=== PATIENT | female | born 1965 | race Caucasian/White ===

== ENCOUNTER 2016-06-17 14:46 | Emergency (ER) | payer OTHER ==
[2016-06-17 14:37] LABS: URINE SOURCE CLEAN CATCH
[2016-06-17 14:39] LABS: URINE APPEARANCE HAZY; URINE BILIRUBIN NEG (NEG); URINE BLOOD 3+ (NEG); URINE COLOR YELLOW; URINE GLUCOSE NEG (NORM); URINE KETONE NEG (NEG); URINE LEUKOCYTE ESTERASE 1+ (NEG); URINE NITRATE NEG (NEG); URINE PROTEIN NEG (NEG); URINE UROBILINOGEN 0.2 MG/DL (NORM)
[2016-06-17 14:46] LABS: MICRO INDICATED? YES
[~2016-06-17 14:46] MED LIST: CLONIDINE; CLONIDINE1 EAC2 PO; LIPITOR20 MG; METFORMIN PO; NERVE PILL
[2016-06-17 14:51] LABS: CULTURE INDICATED? YES; URINE BACTERIA 3+ (NEG); URINE GRANULAR CAST 0-2 /[HPF]; URINE HYALINE CAST 0-2 /[HPF]; URINE MUCUS PRESENT; URINE SQUAMOUS EPITHELIAL CELL MODERATE /[HPF]; URINE WBC 50-100 /[HPF] (0-5)
[2016-06-21 00:03] LABS: CHLAMYDIA TRACH Not Detected (Not Detected); N GONOR Not Detected (Not Detected)
[2016-09-30] MEDS ORDERED: LEVSIN0.125 M1 PO (12:47)
[2016-09-30] MEDS ORDERED: CARVEDILOL TOP (12:48)
== END 2016-06-17 16:52 | disposition home or self-care (01) ==
LOC: SED 14:46
PROVIDERS: Nurse Practitioner
DX: N39.0 Urinary tract infection, site not specified (principal); N93.9 Abnormal uterine and vaginal bleeding, unspecified; E11.9 Type 2 diabetes mellitus without complications; I10 Essential (primary) hypertension; Z90.49 Acquired absence of other specified parts of digestive tract
CPT/HCPCS: 81003; 87086; 87088; 87186; 87210; 87491; 87591; 87808; 87905; 99284

== ENCOUNTER → 2016-06-24 | Outpatient (CLI) | payer OTHER ==
[~2016-06-24] MED LIST changes: +BIRTH CONTROL PILL; +CARVEDILOL TOP; +CARVEDILOL25 MG PO; +CIPRO; +CIPRO PO; +CLIMARA 0.1 MG0.1 MG EXT; +CLONIDINE1 EAC1 TD; +DULOXETINE HCL60 MG PO; +FLAGYL PO; +HYDROCHLOROTHIA25 MG PO; +LEVSIN0.125 M1 PO; +LIPITOR40 MG PO; +LISINOPRIL10 MG PO; +PROTONIX PO; +TIZANIDINE HCL4 M1 PO; +ZOFRAN ODT4 M1; +ZOFRAN PO
--- NOTE | ~2016-06-24 | US98 ---
[facility] A Service of [facility] & [facility] RADIOLOGY TEXT RESULTS PATIENT: AGUSTINA KIM LOCATION: [facility] : 61 UNIT #: [id number] AGE: [address]: SABRINA FRANK SEX: F ORDER DR: [id number] [facility] [address] [place], [place] [address] [id number] O MR#: [id number] Acc #: [id number] NAME: AGUSTINA KIM : 1965 SEX: F STUDY DATE/TIME: 06/24/2016 14:24 UNIT: [facility] ROOM: STUDY DESCRIPTION: US Pelvic Non-OB Complete Attending Physician: Sabrina Frank M.D. Ordering Physician: Sabrina Frank M.D. Primary Care Physician: Tory Anderson M.D. MEDICAL IMAGING REPORT This report is preliminary unless electronic signature is present EXAM Pelvis ultrasound 06/24/2016 INDICATIONS Abnormal uterine bleeding. FINDINGS Uterus measures 11.4 x 5 x 5.8 cm. The uterine myometrium is homogeneous. The endometrial stripe measures 1.8 cm. The right ovary measures 1.5 x 1 x 1.6 cm. Left ovary is not clearly identified. No adnexal mass or free pelvic fluid. IMPRESSION Negative pelvic ultrasound. Please note the left ovary is not visualized. Dictated by... Rigo Paulson M.D. THIS IS AN ELECTRONICALLY VERIFIED REPORT Rigo Paulson M.D. at 06/26/2016 10:22 AM SHARRON/ricky TD: 06/25/2016 22:36 JOB #: [id number] MEDICAL IMAGING REPORT Page 1 of 1 COPY
== END | disposition home or self-care (01) ==
LOC: CGUS 14:08
DX: N95.0 Postmenopausal bleeding (principal); N93.9 Abnormal uterine and vaginal bleeding, unspecified
CPT/HCPCS: 76830; 76856

== ENCOUNTER 2016-08-27 02:12 | Emergency (ER) | payer OTHER ==
--- NOTE | ~2016-08-27 | EKG ---
PATIENT: AGUSTINA KIM UNIT #: [id number] Ventricular Rate: 64 BPM Atrial Rate: 64 BPM P-R Interval: 146 ms QRS Duration: 78 ms Q-T Interval: 450 ms QTC Calculation(Bezet): 464 ms P [place]: 42 degrees Calculated R [place]: 4 degrees Calculated T [place]: 9 degrees Diagnosis Line: Normal sinus rhythm Diagnosis Line: Nonspecific T wave abnormality Diagnosis Line: Prolonged QT Diagnosis Line: Abnormal ECG Diagnosis Line: No previous ECGs available Diagnosis Line: Confirmed by MARS LYNN MD ([id number]) on Diagnosis Line: 08/29/2016 3:40:36 PM INTERPRETING MD: LEAH BOYKIN
--- NOTE | ~2016-08-27 | CT71 ---
[facility] A Service [facility] RADIOLOGY TEXT RESULTS PATIENT: AGUSTNIA KIM LOCATION: SED : 61 UNIT #: [id number] AGE: [address]: Marni Bae MD SEX: F ORDER DR: [id number] [place] [id number] E MR#: [id number] Acc #: [id number] NAME: AGUSTINA KIM : 1965 SEX: F STUDY DATE/TIME: 08/27/2016 3:50 UNIT: SED ROOM: STUDY DESCRIPTION: CT Head Wo Contrast Attending Physician: Marni Bae M.D. Ordering Physician: Marni Bae M.D. Primary Care Physician: Tory Anderson M.D. MEDICAL IMAGING REPORT This report is preliminary unless electronic signature is present. EXAM CT head, noncontrast, 08/27/2016. HISTORY 51-year-old female in the ED complaining of headache, vomiting and weakness beginning after a syncopal episode yesterday. TECHNIQUE CT examination of the head was performed without IV contrast. This CT exam was performed with one or more of the following radiation dose reduction techniques: automatic exposure control, adjustment of mA and/or kV according to patient size, and iterative reconstruction. FINDINGS The examination is negative. No evidence of intracranial hemorrhage, mass, mass effect, cerebral edema, hydrocephalus or additional abnormality. IMPRESSION Negative head CT examination. Dictated by... Wally Duncan M.D. THIS IS AN ELECTRONICALLY VERIFIED REPORT Wally Duncan M.D. at 08/27/2016 9:54 PM RGW/tmw TD: 08/27/2016 14:14 JOB #: [id number] [facility] A Service [facility] RADIOLOGY TEXT RESULTS PATIENT: AGUSTINA KIM LOCATION: SED : 61 UNIT #: [id number] AGE: [address]: Marni Bae MD SEX: F ORDER DR: MEDICAL IMAGING REPORT Page 1 of 1
--- NOTE | ~2016-08-27 | CR2 ---
[facility] A Service of [facility] RADIOLOGY TEXT RESULTS PATIENT: AGUSTINA KIM LOCATION: SED : 61 UNIT #: [id number] AGE: [address]: Marni Bae MD SEX: F ORDER DR: [id number] [place] [address] [id number] E MR#: [id number] Acc #: [id number] NAME: AGUSTINA KIM : 1965 SEX: F STUDY DATE/TIME: 08/27/2016 3:36 UNIT: SED ROOM: STUDY DESCRIPTION: CR Abdomen Acute Series Attending Physician: Marni Bae M.D. Ordering Physician: Marni Bae M.D. Primary Care Physician: Tory Anderson M.D. MEDICAL IMAGING REPORT This report is preliminary unless electronic signature is present. EXAM Acute abdomen series, 08/27/2016. HISTORY 51-year-old female in the ED complaining of nausea and vomiting beginning after a syncopal episode yesterday. TECHNIQUE Flat and upright abdomen series with PA upright chest x-ray. FINDINGS Bowel gas pattern is normal. No evidence of bowel obstruction, adynamic ileus, or bowel perforation. Negative chest x-ray. The lungs appear clear. IMPRESSION Negative acute abdomen series. Dictated by... Wally Duncan M.D. THIS IS AN ELECTRONICALLY VERIFIED REPORT Wally Duncan M.D. at 08/27/2016 9:54 PM RGW/tmw TD: 08/27/2016 14:18 JOB #: [id number] MEDICAL IMAGING REPORT [facility] A Service [facility] RADIOLOGY TEXT RESULTS PATIENT: AGUSTINA KIM LOCATION: SED : 61 UNIT #: [id number] AGE: [address]: Marni Bae MD SEX: F ORDER DR: Page 1 of 1
[~2016-08-27 02:12] MED LIST changes: -BIRTH CONTROL PILL; -CARVEDILOL TOP; -CARVEDILOL25 MG PO; -CIPRO; -CIPRO PO; -CLIMARA 0.1 MG0.1 MG EXT; -CLONIDINE1 EAC1 TD; -DULOXETINE HCL60 MG PO; -FLAGYL PO; -HYDROCHLOROTHIA25 MG PO; -LEVSIN0.125 M1 PO; -LIPITOR40 MG PO; -LISINOPRIL10 MG PO; -PROTONIX PO; -TIZANIDINE HCL4 M1 PO; -ZOFRAN ODT4 M1; -ZOFRAN PO
[2016-08-27] MEDS ORDERED: BIRTH CONTROL PILL (02:22)
[2016-08-27 03:01] LABS: URINE SOURCE CLEAN CATCH
[2016-08-27 03:03] LABS: BASOPHIL# 0.2 X10e3 (0-0.3); BASOPHIL% 1.3 % (0-2.5); EOSINOPHIL# 0.2 X10e3 (0-0.7); EOSINOPHIL% 1.1 % (0.0-7.0); HEMATOCRIT 38.3 % (35.0-45.0); HEMOGLOBIN 13.2 gm/dL (12.0-16.0); MEAN CELL VOLUME 88.4 FL (83-96); MEAN CORPUSCULAR HEMOGLOBIN 30.4 PG (28-34); MEAN CORPUSCULAR HGB CONC 34.3 g/dL (30-36); MEAN PLATELET VOLUME 8.8 FL (6.5-11.5); MONOCYTE% 6.3 % (3.0-12.0); NEUTROPHIL# 11.4 X10e3 (1.5-7.1); NEUTROPHIL% 72.3 % (40-75); PLATELET COUNT 366 X10e3 (140-420); RED BLOOD COUNT 4.33 X10e (3.90-5.30); RED CELL DISTRIBUTION WIDTH 13.5 % (11.0-15.5); WHITE BLOOD COUNT 15.7 X10e3 (4.0-10.5)
[2016-08-27 03:03] LABS: URINE APPEARANCE SL CLOUDY; URINE BLOOD 1+ (NEG); URINE COLOR YELLOW; URINE GLUCOSE NEG (NORM); URINE KETONE TRACE (NEG); URINE LEUKOCYTE ESTERASE 3+ (NEG); URINE NITRATE NEG (NEG); URINE PROTEIN 1+ (NEG); URINE UROBILINOGEN 0.2 MG/DL (NORM)
[2016-08-27 03:05] LABS: DIFF IND NO
[2016-08-27 03:12] LABS: MICRO INDICATED? YES; URINE BILIRUBIN NEG (NEG)
[2016-08-27 03:13] LABS: URINE AMORPHOUS SEDIMENT AMORP URATES; URINE BACTERIA 1+ (NEG); URINE MUCUS PRESENT; URINE SQUAMOUS EPITHELIAL CELL MANY /[HPF]; URINE TRANSITIONAL EPI CELLS FEW /[HPF]; URINE WBC INNUM /[HPF] (0-5)
[2016-08-27 03:22] LABS: ALBUMIN SERUM 3.9 g/dL (3.5-5.0); ALKALINE PHOSPHATASE 131 U/L (32-92); ALT (SGPT) 14 U/L (10-40); AST (SGOT) 19 U/L (10-42); BILIRUBIN,TOTAL 0.4 mg/dL (0.2-2.0); BLOOD UREA NITROGEN 16 mg/dL (9-23); BUN/CREATININE RATIO 11.42; CALCIUM SERUM 9.1 mg/dL (8.4-10.2); CARBON DIOXIDE 27 mmol/L (22-31); CHLORIDE 99 mmol/L (100-111); CREATININE SERUM 1.4 mg/dL (0.6-1.4); GLOM FILT RATE Estimated 42.8 mL/min (>60); GLUCOSE FASTING 104 mg/dL (70-110); LIPASE 30 U/L (22-51); POTASSIUM 3.4 mmol/L (3.5-5.1); PROTEIN TOTAL SERUM 7.9 g/dL (6.0-8.3); SODIUM 133 mmol/L (135-145)
[2016-08-27 03:26] LABS: BILIRUBIN, DIRECT <0.1 mg/dL (0.0-0.2); BILIRUBIN,INDIRECT 0.3 mg/dL (0.0-0.9)
[2016-09-30] MEDS ORDERED: LEVSIN0.125 M1 PO (12:47)
[2016-09-30] MEDS ORDERED: CARVEDILOL TOP (12:48)
== END 2016-08-27 05:50 | disposition home or self-care (01) ==
LOC: SED 02:12
PROVIDERS: Emergency Medicine
DX: I95.9 Hypotension, unspecified (principal); E86.0 Dehydration; N39.0 Urinary tract infection, site not specified; R19.7 Diarrhea, unspecified; E78.5 Hyperlipidemia, unspecified
CPT/HCPCS: 36415; 70450; 74022; 80048; 80076; 81003; 83690; 85025; 87086; 93005; 96361; 96365; 96375; 99284; J0696; J2405

== ENCOUNTER 2016-09-01 23:38 | Emergency (ER) | payer OTHER ==
--- NOTE | ~2016-09-01 | EKG ---
PATIENT: AGUSTINA KIM UNIT #: [id number] Ventricular Rate: 62 BPM Atrial Rate: 62 BPM P-R Interval: 146 ms QRS Duration: 76 ms Q-T Interval: 422 ms QTC Calculation(Bezet): 428 ms P Austin: 52 degrees Calculated R [place]: 7 degrees Calculated T Austin: 8 degrees Diagnosis Line: Normal sinus rhythm Diagnosis Line: Normal ECG Diagnosis Line: When compared with ECG of 27-AUG-2016 02:40, Diagnosis Line: No significant change was found Diagnosis Line: Confirmed by ANA MARÍA SINGH MD ([id number]) on 09/05/2016 Diagnosis Line: 8:09:09 AM INTERPRETING MD: FRANCISCO BOYKIN
--- NOTE | ~2016-09-01 | CT4 ---
[facility] A Service of [facility] & [facility] RADIOLOGY TEXT RESULTS PATIENT: AGUSTINA KIM LOCATION: SED : 61 UNIT #: [id number] AGE: [address]: Nate Hager MD SEX: F ORDER DR: [id number] [address] [address] [id number] E MR#: [id number] Acc #: [id number] NAME: AGUSTINA KIM : 1965 SEX: F STUDY DATE/TIME: 09/02/2016 1:55 UNIT: SED ROOM: STUDY DESCRIPTION: CT Abd and Pelv Wo Cont Attending Physician: Naet Hager M.D. Ordering Physician: Nate Hager M.D. Primary Care Physician: Tory Anderson M.D. MEDICAL IMAGING REPORT This report is preliminary unless electronic signature is present. EXAM CT abdomen and pelvis, noncontrast, 09/02/16 HISTORY 51-year-old female in the ED complaining of 1-week history of upper abdomen pain. Dizziness. Hypotensive. TECHNIQUE CT examination of the abdomen and pelvis was performed without oral or IV contrast, as requested. Lack of contrast limits this study, particularly for evaluation of the GI tract. This CT exam was performed with one or more of the following radiation dose reduction techniques: Automatic exposure control, adjustment of mA and/or kV according to patient size, and iterative reconstruction. FINDINGS ABDOMEN FINDINGS: Mild small bowel dilatation is present within the central abdomen, and there may be some mild small bowel wall thickening involving these segments. Distal ileum and terminal ileum also show evidence of potential wall thickening. This is poorly assessed without oral or IV contrast administration. Mild mesenteric edema is present in the central abdomen near the dilated small bowel segments. The findings suggest small bowel enteritis. Infectious enteritis or inflammatory bowel disease should be considered. Colon is decompressed. The appendix is surgically absent. Small volume free pelvic fluid is noted. Liver, pancreas and spleen are normal in size and appearance without contrast. Nondistended gallbladder. No bile duct dilatation. The stomach is nondistended. Normal caliber abdominal aorta. Tiny nonobstructing calculus in the lower-pole left kidney measuring about 2 mm. Kidneys, ureters and bladder are otherwise unremarkable. No evidence of ureteral obstruction. [facility] A Service of [facility] RADIOLOGY TEXT RESULTS PATIENT: AGUSTINA KIM LOCATION: SED : 61 UNIT #: [id number] AGE: [address]: Nate Hager MD SEX: F ORDER DR: PELVIS FINDINGS: Uterus, bladder and rectum are within normal limits. No inguinal hernia. Limited lung base images show no active disease. IMPRESSION 1. Mild small bowel wall thickening and mild small bowel dilatation within the central abdomen with some adjacent mesenteric edema. There may also be some small bowel wall thickening in the region of the terminal ileum. These findings are poorly demonstrated on this study without oral or IV contrast. Small bowel enteritis or inflammatory bowel disease should be considered. There is no evidence of high-grade obstruction. No visible abscess or free intraperitoneal air. The colon is decompressed. Surgically absent appendix. 2. Small amount of free pelvic fluid. 3. Tiny nonobstructing calculus in the lower-pole left kidney. Dictated by... Wally Duncan M.D. THIS IS AN ELECTRONICALLY VERIFIED REPORT Wally Duncan M.D. at 09/09/2016 1:57 PM GALINA/curt TD: 09/02/2016 02:32 JOB #: [id number] MEDICAL IMAGING REPORT Page 1 of 1
[~2016-09-01 23:38] MED LIST changes: +BIRTH CONTROL PILL
[2016-09-01] MEDS ORDERED: CIPRO (23:56)
[2016-09-01] MEDS ORDERED: ZOFRAN ODT4 M1 (23:57)
[2016-09-02 00:45] LABS: BASOPHIL# 0.1 X10e3 (0-0.3); BASOPHIL% 0.9 % (0-2.5); EOSINOPHIL# 0.1 X10e3 (0-0.7); EOSINOPHIL% 0.8 % (0.0-7.0); HEMATOCRIT 38.8 % (35.0-45.0); HEMOGLOBIN 13.3 gm/dL (12.0-16.0); LYMPHOCYTE# 2.4 X10e3 (1.0-3.5); LYMPHOCYTE% 15.6 % (17.0-45.0); MEAN CELL VOLUME 87.7 FL (83-96); MEAN CORPUSCULAR HGB CONC 34.2 g/dL (30-36); MEAN PLATELET VOLUME 9.2 FL (6.5-11.5); MONOCYTE% 6.8 % (3.0-12.0); NEUTROPHIL# 11.7 X10e3 (1.5-7.1); NEUTROPHIL% 75.9 % (40-75); PLATELET COUNT 344 X10e3 (140-420); RED BLOOD COUNT 4.43 X10e (3.90-5.30); RED CELL DISTRIBUTION WIDTH 13.1 % (11.0-15.5); WHITE BLOOD COUNT 15.4 X10e3 (4.0-10.5)
[2016-09-02 00:46] LABS: DIFF IND NO
[2016-09-02 01:02] LABS: ALBUMIN SERUM 3.7 g/dL (3.5-5.0); BILIRUBIN, DIRECT 0.1 mg/dL (0.0-0.2); BILIRUBIN,INDIRECT 0.5 mg/dL (0.0-0.9); BILIRUBIN,TOTAL 0.6 mg/dL (0.2-2.0); BUN/CREATININE RATIO 10.47; CALCIUM SERUM 9.4 mg/dL (8.4-10.2); CREATININE SERUM 2.1 mg/dL (0.6-1.4); GLOM FILT RATE Estimated 26.2 mL/min (>60); POTASSIUM 3.7 mmol/L (3.5-5.1); PROTEIN TOTAL SERUM 7.8 g/dL (6.0-8.3)
[2016-09-02 01:55] LABS: URINE SOURCE CLEAN CATCH
[2016-09-02 01:58] LABS: URINE BILIRUBIN NEG (NEG); URINE BLOOD NEG (NEG); URINE COLOR YELLOW; URINE GLUCOSE NEG (NORM); URINE KETONE NEG (NEG); URINE LEUKOCYTE ESTERASE 2+ (NEG); URINE NITRATE NEG (NEG); URINE PH 5.5 (5-8); URINE PROTEIN TRACE (NEG); URINE UROBILINOGEN 0.2 MG/DL (NORM)
[2016-09-02 02:00] LABS: MICRO INDICATED? YES; URINE APPEARANCE SL HAZY
[2016-09-02 02:05] LABS: CULTURE INDICATED? YES; URINE BACTERIA NEG (NEG); URINE MUCUS PRESENT; URINE SQUAMOUS EPITHELIAL CELL MODERATE /[HPF]; URINE TRANSITIONAL EPI CELLS FEW /[HPF]; URINE WBC 50-100 /[HPF] (0-5)
[2016-09-03] MEDS ORDERED: LISINOPRIL10 MG PO (15:02)
[2016-09-03] MEDS ORDERED: LIPITOR40 MG PO ×2 (15:03→15:04)
[2016-09-03] MEDS ORDERED: HYDROCHLOROTHIA25 MG PO (15:04)
[2016-09-03] MEDS ORDERED: CARVEDILOL25 MG PO (15:05)
[2016-09-03] MEDS ORDERED: DULOXETINE HCL60 MG PO (15:05)
[2016-09-03] MEDS ORDERED: TIZANIDINE HCL4 M1 PO (15:05)
[2016-09-03] MEDS ORDERED: CLIMARA 0.1 MG0.1 MG EXT (15:06)
[2016-09-30] MEDS ORDERED: LEVSIN0.125 M1 PO (12:47)
[2016-09-30] MEDS ORDERED: CARVEDILOL TOP (12:48)
== END 2016-09-02 03:06 | disposition home or self-care (01) ==
LOC: SED 23:38
PROVIDERS: Emergency Medicine
DX: K52.9 Noninfective gastroenteritis and colitis, unspecified (principal); N28.9 Disorder of kidney and ureter, unspecified; I10 Essential (primary) hypertension; Z98.890 Other specified postprocedural states
CPT/HCPCS: 36415; 74176; 80048; 80076; 81003; 84703; 85025; 87086; 93005; 96361; 96365; 96375; 99284; J2405; J2765

== ENCOUNTER 2016-09-03 09:24 | Inpatient (IN) | payer OTHER ==
--- NOTE | ~2016-09-03 | HP ---
Unit #: [id number] #: [id number] Patient: AGUSTINA KIM [id number] [facility]. [place], [place] [address] [id number] I MR#: [id number] NAME: AGUSTINA KIM ROOM: 464 Age: 51 Sex: F Admission Date: 09/03/2016 : 1965 Attending Physician: Mckenzie Barber M.D. Primary Care Physician: Tory Anderson M.D. HISTORY AND PHYSICAL CHIEF COMPLAINT Intractable nausea and vomiting and abdominal pain. HISTORY OF PRESENTING ILLNESS 51-year-old female who has a history of hypertension and depression/anxiety, has been dealing with nausea, vomiting for the last two weeks. She is not able to tolerate her pills. She has come to ER three times. During the last visit, she had a CT scan done and was told that he has colitis and was given antibiotics and antiemetic medications. She went home but still could not tolerate even antibiotics. Came back and is being admitted to [facility] in Med/Surg unit. The patient does deal with nausea and vomiting a lot. According to her, certain food makes her throat up like peanut butter, lettuce and certain other meals although she has never been evaluated for this. Her abdominal pain is cramping and not constant. It comes an goes. She does have some diarrhea going on too. She feels poor and has not eaten anything for the last one week. She does not complain of fever but she did have some chills. She did pass out a week ago. After that, she was brought to ER. She was just getting water from fridge and she passed out and fell on the floor. Since then, she has been having weakness and dizziness but has not passed out again. The patient has been using antiemetics but has not helped much. According to her, most of the time she is able to deal with it but this time it has been difficult. PAST MEDICAL HISTORY 1. History of hypertension. 2. History of depression/anxiety. 3. History of menorrhagia, being evaluated by a print shop helper and is on control pills. HOME MEDICATIONS 1. control pills. 2. Cipro. 3. Zofran. 4. Lisinopril 10 mg daily. 5. Hydrochlorothiazide 25 mg daily. 6. Lipitor 40 mg daily. 7. Tizanidine 4 mg three times a day. 8. Cymbalta 60 mg twice a day. 9. Coreg 25 mg twice a day. 10. Climara 0.1 daily. SOCIAL HISTORY The patient lives at home with her daughter. She works in [employer] Unit #: [id number] #: [id number] Patient: AGUSTINA KIM [employer]. No history of smoking, alcohol or drug abuse. FAMILY HISTORY Patient does have a family history of diverticulosis in mother and father. Mother had cancer all over but does not know the primary. ALLERGIES The patient has no known drug allergies. PAST SURGICAL HISTORY 1. Three C-sections. 2. Appendectomy. REVIEW OF SYSTEMS Twelve point review of systems was done. There is no history of chest pain, no history of shortness of breath, no history of paroxysmal nocturnal dyspnea. No history of ear, nose, throat problem. No history of skin issues. The rest is as per history of presenting illness. PHYSICAL EXAMINATION GENERAL: The patient is being evaluated in room 464. VITAL SIGNS: Blood pressure is 185/92, respiratory rate 16, pulse is 87, temperature 98.3, oxygen saturation is 100%. BMI is 31. HEENT: Head is normocephalic. Eye movements are normal. Mild congestion is seen. Pupils are equal, reactive to light. Neck is supple. Oral cavity seems to be moist. CHEST: Fair air entry, no additional sounds. CVS: S1, S2 positive. Regular rhythm. No murmur heard. ABDOMEN: Soft to touch. Very mild generalized tenderness. No rigidity, no rebound. Bowel sounds are positive. EXTREMITIES: Negative edema. Pulses are palpable. MEDICAL AIDE: The patient is awake, alert, oriented x3. No focal neurological deficits. DIAGNOSTIC STUDIES LABORATORY: WBC 12.6, hemoglobin 13.6, hematocrit 40.0 and platelet count of 294. HCG urine is negative. Urinalysis shows 1+ bacteria. Lactic acid 1.5, sodium 141, potassium 3.5, chloride 105, BUN 23, creatinine 1.6. Urine culture is now growth. ASSESSMENT AND PLAN The patient is being admitted to Med/Surg unit at [facility] with a diagnosis of: 1. Intractable nausea and vomiting. 2. Acute abdominal pain. 3. Colitis. 4. Acute renal insufficiency. 5. Dehydration. 6. Hypertension, uncontrolled. 7. History of depression/anxiety. 8. Per patient, borderline diabetes. Unit #: [id number] #: [id number] Patient: AGUSTINA KIM SERENA PLAN Patient is being admitted to Med/Surg unit. IV hydration is being started. IV Protonix 40 mg daily is being started. IV Flagyl 500 q.8 hourly. IV Levaquin 500 daily. IV Zofran 4 mg q.6 p.r.n. and Phenergan in between if she does not get better. Clear liquid diet is being started. Vasotec 1.25 mg q.6 p.r.n. for systolic greater than 170 and diastolic greater than 100. Labs will be repeated tomorrow morning. Dr. Alatorre from gastroenterology will be consulted. Please refer to progress note for further orders. Plan of care discussed with patient at length and she does verbalize understanding. Dictated by Eric Hernandez/vincent TD: 09/04/2016 14:25 JOB #: [id number] HISTORY AND PHYSICAL Page 1 of 1 X Mckenzie Barber MD X HISTORY AND PHYSICAL
--- NOTE | ~2016-09-03 | OR ---
Unit #: [id number] #: [id number] Patient: AGUSTINA KIM [id number] [address] [address] [id number] I MR#: [id number] NAME: AGUSTINA KIM ROOM: 464 Date of Procedure: 09/05/2016 Admission Date: 09/03/2016 Surgeon: Kelechi Alatorre M.D. : 1965 Attending Physician: Mckenzie Barber M.D. Primary Care Physician: Tory Anderson M.D. OPERATIVE REPORT PROCEDURE PERFORMED Esophagogastroduodenoscopy with biopsies. INDICATIONS The patient with abdominal pain, persistent nausea and vomiting, undergoing evaluation with upper endoscopy. MEDICATIONS Monitored anesthesia. POSTOPERATIVE FINDINGS 1. Small hiatal hernia along with mild esophagitis. 2. Diffuse moderately severe gastritis. Biopsy was taken. 3. Normal duodenum and distal duodenum. PLAN Follow up on the pathology report. Continue PPI therapy and symptomatic treatment for now. DESCRIPTION OF PROCEDURE The patient was explained of the procedure, risks, and benefits along with risks and benefits of anesthesia. She was brought to the endoscopy room. Propofol anesthesia was given. Bite block was placed. The scope was passed down the mouth into the esophagus, stomach, duodenum, and distal duodenum. Findings as described. Biopsy was taken. Gently, I pulled it out of the patient's mouth. She tolerated it well. Dictated by... Eric Naik/beatris TD: 09/05/2016 21:51 JOB #: [id number] Unit #: [id number] #: [id number] Patient: AGUSITNA KIM OPERATIVE REPORT Page 1 of 1 X Kelechi Alatorre MD X PROCEDURE OPERATIVE NOTE
--- NOTE | ~2016-09-03 | DS ---
Unit #: [id number] #: [id number] Patient: AGUSTINA MARTÍNEZ [id number] [address] [address] [id number] I MR#: [id number] NAME: AGUSTINA MARTÍNEZ ROOM: 464 Age: 51 Sex: F Admission Date: 09/03/2016 : 1965 Discharge Date: 09/05/2016 Attending Physician: Mckenzie Barber M.D. Primary Care Physician: Tory Anderson M.D. DISCHARGE SUMMARY FINAL DIAGNOSES 1. Intractable nausea and vomiting, which is resolved. 2. Abdominal pain, improved. 3. Colitis. 4. Adrenal insufficiency secondary to dehydration, which is resolved. 5. Hypertension, uncontrolled, which is improved. 6. Status post EGD which shows hiatal hernia, mild esophagitis and diffuse moderate gastritis. Biopsy has been done. Normal duodenum. DISCHARGE MEDICATIONS 1. Cipro 500 mg p.o. b.i.d. for 5 days. 2. Flagyl 500 mg q.8 h. for 5 days. 3. Protonix 40 mg daily. 4. Zofran ODT p.r.n. basis. 5. Clonidine 0.2 mg topically q. weekly. 6. Lisinopril 10 mg p.o. daily. 7. Cymbalta 60 mg b.i.d. 8. Coreg 25 mg b.i.d. 9. Hydrochlorothiazide [address] Alatorre from gastroenterology services. PROCEDURES PERFORMED EGD. Findings are as above. DIAGNOSTIC DATA LABORATORY: At discharge, c-diff is negative. Hemoglobin A1c 5.6. Urine culture is negative. Sodium 137, potassium 3.1, chloride 105, BUN 10, creatinine 0.9, white blood cell count 7.4, hemoglobin 11.8, hematocrit 34.7 and platelet count 253. Lactic acid 1.5. IMAGING: CT scan of the abdomen and pelvis was done on admission, which showed mild small bowel wall thickening with mild small bowel dilatation within the central abdomen with some adjacent mesenteric edema. Small bowel enteritis or inflammatory bowel disease should be considered. HOSPITAL COURSE Ms. Martínez is a 51-year-old female who was admitted to the hospital with intractable nausea and vomiting and abdominal pain. The patient was admitted to the medical/surgical unit at [facility]. IV Protonix was started. IV Cipro and IV Flagyl were started. CT scan was done. Findings are as above. The patient is doing very well. She had EGD done. Findings are as above. The patient will need colonoscopy done Unit #: [id number] #: [id number] Patient: AGUSTINA MARTÍNEZ as an outpatient. The patient's blood pressure was uncontrolled and clonidine has been started. This has improved and needs to be observed as an outpatient. The plan of care has been discussed with the patient at length. DISCHARGE INSTRUCTIONS 1. Follow up with primary care physician in one week. 2. Potassium 40 mEq will be given before discharge. 3. BMP in one week. 4. Follow up with Dr. Alatorre in two weeks for possible colonoscopy and to get the results of gastric biopsy. Dictated by... Eric Hernandez TD: 09/06/2016 08:42 JOB #: [id number] DISCHARGE SUMMARY Page 1 of 1 X Mckenzie Barber MD X DISCHARGE SUMMARY
[~2016-09-03 09:24] MED LIST changes: +CIPRO; +ZOFRAN ODT4 M1
[2016-09-03 10:55] LABS: URINE SOURCE CLEAN CATCH
[2016-09-03 10:58] LABS: URINE APPEARANCE CLEAR; URINE BILIRUBIN NEG (NEG); URINE BLOOD NEG (NEG); URINE COLOR YELLOW; URINE GLUCOSE NEG (NORM); URINE KETONE NEG (NEG); URINE LEUKOCYTE ESTERASE 2+ (NEG); URINE NITRATE NEG (NEG); URINE PROTEIN TRACE (NEG); URINE SPECIFIC GRAVITY 1.015 (1.003-1.035); URINE UROBILINOGEN 0.2 MG/DL (NORM)
[2016-09-03 10:58] LABS: BASOPHIL# 0.1 X10e3 (0-0.3); EOSINOPHIL# 0.1 X10e3 (0-0.7); EOSINOPHIL% 0.9 % (0.0-7.0); HEMOGLOBIN 13.6 gm/dL (12.0-16.0); LYMPHOCYTE# 1.7 X10e3 (1.0-3.5); LYMPHOCYTE% 13.9 % (17.0-45.0); MEAN CELL VOLUME 88.4 FL (83-96); MEAN CORPUSCULAR HEMOGLOBIN 30.1 PG (28-34); MEAN CORPUSCULAR HGB CONC 34.1 g/dL (30-36); MEAN PLATELET VOLUME 9.4 FL (6.5-11.5); MONOCYTE% 7.9 % (3.0-12.0); NEUTROPHIL# 9.6 X10e3 (1.5-7.1); NEUTROPHIL% 76.3 % (40-75); PLATELET COUNT 294 X10e3 (140-420); RED BLOOD COUNT 4.53 X10e (3.90-5.30); WHITE BLOOD COUNT 12.6 X10e3 (4.0-10.5)
[2016-09-03 11:00] LABS: DIFF IND NO
[2016-09-03 11:01] LABS: MICRO INDICATED? YES
[2016-09-03 11:04] LABS: CULTURE INDICATED? YES; URINE BACTERIA 1+ (NEG); URINE RBC NEG /[HPF] (0-2); URINE SQUAMOUS EPITHELIAL CELL MANY /[HPF]; URINE WBC 50-100 /[HPF] (0-5)
[2016-09-03 11:05] LABS: URINE MUCUS PRESENT
[2016-09-03 11:17] LABS: ALBUMIN SERUM 4.5 g/dL (3.5-5.0); BILIRUBIN, DIRECT 0.1 mg/dL (0.0-0.2); BILIRUBIN,INDIRECT 0.6 mg/dL (0.0-0.9); BILIRUBIN,TOTAL 0.7 mg/dL (0.2-2.0); BUN/CREATININE RATIO 14.37; CALCIUM SERUM 9.3 mg/dL (8.4-10.2); CREATININE SERUM 1.6 mg/dL (0.6-1.4); GLOM FILT RATE Estimated 36.4 mL/min (>60); POTASSIUM 3.5 mmol/L (3.5-5.1)
[2016-09-03] MEDS ORDERED: LISINOPRIL10 MG PO (15:02)
[2016-09-03] MEDS ORDERED: LIPITOR40 MG PO ×2 (15:03→15:04)
[2016-09-03] MEDS ORDERED: HYDROCHLOROTHIA25 MG PO (15:04)
[2016-09-03] MEDS ORDERED: TIZANIDINE HCL4 M1 PO (15:05)
[2016-09-03] MEDS ORDERED: DULOXETINE HCL60 MG PO (15:05)
[2016-09-03] MEDS ORDERED: CARVEDILOL25 MG PO (15:05)
[2016-09-03] MEDS ORDERED: CLIMARA 0.1 MG0.1 MG EXT (15:06)
[2016-09-04 02:50] LABS: BASOPHIL# 0.1 X10e3 (0-0.3); BASOPHIL% 0.5 % (0-2.5); DIFF IND NO; EOSINOPHIL# 0.1 X10e3 (0-0.7); EOSINOPHIL% 0.6 % (0.0-7.0); HEMOGLOBIN 13.4 gm/dL (12.0-16.0); LYMPHOCYTE# 1.1 X10e3 (1.0-3.5); LYMPHOCYTE% 10.2 % (17.0-45.0); MEAN CELL VOLUME 88.6 FL (83-96); MEAN CORPUSCULAR HEMOGLOBIN 29.7 PG (28-34); MEAN CORPUSCULAR HGB CONC 33.5 g/dL (30-36); MEAN PLATELET VOLUME 9.4 FL (6.5-11.5); MONOCYTE# 0.6 X10e3 (0-1.0); MONOCYTE% 5.3 % (3.0-12.0); NEUTROPHIL# 8.9 X10e3 (1.5-7.1); NEUTROPHIL% 83.4 % (40-75); PLATELET COUNT 267 X10e3 (140-420); RED BLOOD COUNT 4.52 X10e (3.90-5.30); WHITE BLOOD COUNT 10.7 X10e3 (4.0-10.5)
[2016-09-04 03:28] LABS: BUN/CREATININE RATIO 11.66; CALCIUM SERUM 8.8 mg/dL (8.4-10.2); CREATININE SERUM 1.2 mg/dL (0.6-1.4); GLOM FILT RATE Estimated 51.6 mL/min (>60); POTASSIUM 3.5 mmol/L (3.5-5.1)
[2016-09-05 04:06] LABS: BASOPHIL# 0.1 X10e3 (0-0.3); BASOPHIL% 0.9 % (0-2.5); EOSINOPHIL# 0.1 X10e3 (0-0.7); EOSINOPHIL% 1.3 % (0.0-7.0); HEMATOCRIT 34.7 % (35.0-45.0); HEMOGLOBIN 11.8 gm/dL (12.0-16.0); MEAN CELL VOLUME 87.4 FL (83-96); MEAN CORPUSCULAR HEMOGLOBIN 29.8 PG (28-34); MEAN CORPUSCULAR HGB CONC 34.1 g/dL (30-36); MEAN PLATELET VOLUME 9.4 FL (6.5-11.5); MONOCYTE# 0.5 X10e3 (0-1.0); MONOCYTE% 7.3 % (3.0-12.0); NEUTROPHIL# 4.7 X10e3 (1.5-7.1); NEUTROPHIL% 63.5 % (40-75); PLATELET COUNT 253 X10e3 (140-420); RED BLOOD COUNT 3.97 X10e (3.90-5.30); RED CELL DISTRIBUTION WIDTH 12.8 % (11.0-15.5); WHITE BLOOD COUNT 7.4 X10e3 (4.0-10.5)
[2016-09-05 04:09] LABS: DIFF IND NO
[2016-09-05 04:25] LABS: BUN/CREATININE RATIO 11.11; CALCIUM SERUM 8.2 mg/dL (8.4-10.2); CREATININE SERUM 0.9 mg/dL (0.6-1.4); POTASSIUM 3.1 mmol/L (3.5-5.1)
[2016-09-05] MEDS ORDERED: CLONIDINE1 EAC1 TD (18:37)
[2016-09-05] MEDS ORDERED: PROTONIX PO (18:40)
[2016-09-05] MEDS ORDERED: CIPRO PO (18:42)
[2016-09-05] MEDS ORDERED: FLAGYL PO (18:43)
[2016-09-05] MEDS ORDERED: ZOFRAN PO (18:44)
[2016-09-30] MEDS ORDERED: LEVSIN0.125 M1 PO (12:47)
[2016-09-30] MEDS ORDERED: CARVEDILOL TOP (12:48)
== END 2016-09-05 19:48 | disposition home or self-care (01) | DRG 690 ==
LOC: SED 09:24 → SEDOF 12:50 → C4C 13:05 → SEDOF 17:45 → C4C 17:45 → UNDODEPER 09-05 17:52 → C4C 09-05 19:48
PROVIDERS: Emergency Medicine; Internal Medicine; Physician Assistant Medical
PROC: 0DB68ZX Excision of Stomach, Via Natural or Artificial Opening Endoscopic, Diagnostic (ICD-10-PCS; principal; 2016-09-05 13:18)
DX: N39.0 Urinary tract infection, site not specified (principal); I10 Essential (primary) hypertension; K52.9 Noninfective gastroenteritis and colitis, unspecified; K29.70 Gastritis, unspecified, without bleeding; R11.2 Nausea with vomiting, unspecified; R10.9 Unspecified abdominal pain; F41.9 Anxiety disorder, unspecified; F32.9 Major depressive disorder, single episode, unspecified; E86.0 Dehydration; N28.9 Disorder of kidney and ureter, unspecified; R73.03 Prediabetes; K44.9 Diaphragmatic hernia without obstruction or gangrene; K20.9 Esophagitis, unspecified
CPT/HCPCS: 36415; 80048; 80076; 81003; 82150; 83036; 83605; 83690; 84703; 85025; 87086; 87493; 88305; 88312; 96361; 96374; 96375; 99284; C9113; J1170; J1956; J2405